=== PATIENT | female | born 1955 | race African-American/Black ===

== ENCOUNTER → 2017-03-05 | Outpatient (CLI) | payer OTHER ==
[~2017-03-05] MED LIST: COUMADIN 5 MG TA5 M1; DIOVAN HCT 1601 EACH; REMERON15 MG; VITAMIN D400 UNI1
== END ==
LOC: RAD 11:37
DX: M79.605 Pain in left leg (principal); M79.604 Pain in right leg; M79.89 Other specified soft tissue disorders; R79.1 Abnormal coagulation profile

== ENCOUNTER → 2017-03-10 | Outpatient (CLI) | payer OTHER | LOC: NUC 08:37 | DX: R79.1 Abnormal coagulation profile (principal); R79.89 Other specified abnormal findings of blood chemistry; Z86.711 Personal history of pulmonary embolism ==